=== PATIENT | male | born 1945 | race Caucasian/White ===

== ENCOUNTER 2020-03-27 11:18 | Emergency (ER) | payer MEDICARE, SELFPAY ==
[2020-03-27 11:20] VITALS: PULSE 68; RESP 16; TEMP 36.3; O2SAT 100; BMI 25.1
--- NOTE | 2020-03-27 12:30 | PC.NURSE ---
pt states he had another bm while waiting and it was normal for him and asked if he should wait til later to be seen. i explain that I will update his chart and hopefully it won't be much longer to be seen by a provider.
== END 2020-03-27 14:21 | disposition left against medical advice (07) ==
PROVIDERS: Emergency Provider Emergency Medicine
CPT/HCPCS: 99281